=== PATIENT | male | born 1975 | race Two or more races ===

== ENCOUNTER → 2016-05-31 | Outpatient (CLI) | payer BC ==
--- NOTE | 2016-05-31 16:11 | RADRPT ---
PROCEDURE: Left knee radiographs. CLINICAL INDICATION: Left knee pain. TECHNIQUE: Three views. Weight bearing. Frontal, lateral, and patellar view. COMPARISON: No prior studies are available for comparison. FINDINGS: There is no fracture or dislocation. The soft tissues are normal. There is a bipartite patella. The articular surfaces are intact. There is no lytic or blastic lesion. There is no radiopaque foreign body. IMPRESSION: 1. Bipartite patella, normal variant. 2. Otherwise unremarkable study. RPTAT: QQ .Alexander Ballard MD, MD Date Time Electronically viewed and signed by .Alexander Ballard MD, on 05/31/2016 16:10 .R/
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
== END | disposition home or self-care (01) ==
LOC: HKI 14:16
DX: M25.561 Pain in right knee (principal)
CPT/HCPCS: 73562; G0463